=== PATIENT | male | born 1995 | race Caucasian/White ===

== ENCOUNTER 2018-09-16 14:30 | Outpatient (CLI) | payer OTHER | END 2018-09-16 23:59 | disposition home or self-care (01) | LOC: CFH 14:30 | PROVIDERS: ATTEND Physician Assistant | DX: N45.3 Epididymo-orchitis (principal); K40.90 Unilateral inguinal hernia, without obstruction or gangrene, not specified as recurrent; N43.3 Hydrocele, unspecified | CPT/HCPCS: 76870; 93975 ==